=== PATIENT | female | born 1990 | race Two or more races ===

== ENCOUNTER 2019-01-04 11:21 | Emergency (ER) | payer SELFPAY ==
[~2019-01-04] VITALS: Ht 152.4 cm; Wt 79.5 kg
[2019-01-04 11:35] VITALS: BP 124/65
[2019-01-04] MEDS ORDERED: VITAD1000 PO (11:49)
[2019-01-04] MEDS ORDERED: TRAZ-252 PO (11:49)
[2019-01-04] MEDS ORDERED: TOPI100T37 PO (11:49)
[2019-01-04] MEDS ORDERED: DIPH25 PO (11:49)
[2019-01-04] MEDS ORDERED: FLUP10 PO ×2 (11:49)
[2019-01-04] MEDS ORDERED: FLUPH2.5I IM (11:49)
[2019-01-04] MEDS ORDERED: LORA1TAB3 PO (11:49)
== END 2019-01-04 12:56 | disposition home or self-care (01) ==
LOC: EMS 11:22
DX: F20.9 Schizophrenia, unspecified (principal); Z88.8 Allergy status to other drugs, medicaments and biological substances; Z79.899 Other long term (current) drug therapy

== ENCOUNTER 2019-04-29 10:10 | Emergency (ER) | payer SELFPAY ==
[~2019-04-29] VITALS: Ht 154.9 cm; Wt 75.0 kg
[~2019-04-29 10:10] MED LIST: CHOL100018 PO; DIPH25 PO; FLUP10 PO; FLUPH2.5I IM; LORA-1000 PO; TOPI100T37 PO; TRAZ-252 PO
[2019-04-29] MEDS ORDERED: TRIH5TAB2 PO (10:21)
[2019-04-29 12:22] LABS: APPEARANCE,URINE CLOUDY (CLEAR); GLUCOSE, URINE (UA) NEGATIVE (NEGATIVE); KETONES,URINE >=80 mg/dL (NEGATIVE); LEUKOCYTE ESTERASE ,URINE SMALL (NEGATIVE); NITRATE,URINE NEGATIVE (NEGATIVE); PH,URINE 5.5 (5.0-8.0); PROTEIN,URINE SEE CONFIRM (NEGATIVE)
[2019-04-29 12:28] LABS: BILIRUBIN,URINE PRELIM. POSITIVE (NEGATIVE); OCCULT BLOOD,URINE MODERATE (NEGATIVE)
[2019-04-29 12:29] LABS: AMORPHOUS SEDIMENT,UR Many /LPF (None Seen); BACTERIA,URINE Many /HPF (None Seen); SQUAMOUS EPITHELIAL CELL,UR Moderate /LPF (None Seen); SULFOSALICYLIC ACID,URINE 1+ (Negative)
[2019-04-29] MEDS ORDERED: AZITHROMYCIN 250 MG TABLET PO ONE (12:45)
[2019-04-29] MEDS ORDERED: CefTRIAXone SODIUM 1 GM/VIAL IM ONE (12:45)
[2019-04-29] MEDS ORDERED: CEPHALEXIN MONOHYDRATE 500 MG CAPSULE PO ONE (12:45)
[2019-04-29 15:12] VITALS: BP 128/71
== END 2019-04-29 15:19 | disposition home or self-care (01) ==
LOC: EMS 10:11
DX: N89.8 Other specified noninflammatory disorders of vagina (principal); F20.9 Schizophrenia, unspecified; Z79.899 Other long term (current) drug therapy; Z88.8 Allergy status to other drugs, medicaments and biological substances
CPT/HCPCS: 81001; 81025; 84703; 87086; 96372; 99283; J0696

== ENCOUNTER 2022-03-16 17:39 | Emergency (ER) | payer MEDICARE, OTHER ==
[~2022-03-16] VITALS: Ht 154.9 cm; Wt 79.3 kg
[~2022-03-16 17:39] MED LIST changes: -FLUP10 PO; +FLUP10TA28 PO; -TOPI100T37 PO; -TRAZ-252 PO; +TRIH5TAB4 PO
[2022-03-16 22:37] VITALS: BP 141/90
== END 2022-03-16 22:42 | disposition home or self-care (01) ==
LOC: EMS 17:44
DX: S05.12XA Contusion of eyeball and orbital tissues, left eye, initial encounter (principal); E11.9 Type 2 diabetes mellitus without complications; F20.9 Schizophrenia, unspecified; Y04.0XXA Assault by unarmed brawl or fight, initial encounter; Y93.89 Activity, other specified; Y92.89 Other specified places as the place of occurrence of the external cause; Y99.8 Other external cause status; Z88.6 Allergy status to analgesic agent
CPT/HCPCS: 70486; 82962; 99284

== ENCOUNTER 2023-09-23 18:52 | Inpatient (IN) | payer MEDICARE, MEDICAID ==
[~2023-09-23] VITALS: Ht 154.9 cm; Wt 80.8 kg
[~2023-09-23 18:52] MED LIST changes: +DIPH-1243 PO; -DIPH25 PO
[2023-09-24 01:24] LABS: COVID AG,FIA SOURCE NASAL SWAB
[2023-09-24 01:43] LABS: SARS-COV2 (COVID) ANTIGEN,FIA Negative (Negative)
[2023-09-24 10:20] VITALS: BP 141/89; PULSE 110; RESP 18; TEMP 97.9
[2023-09-24 11:35] VITALS: BP 100/60; PULSE 98; RESP 12; TEMP 97.7; O2SAT 97
[2023-09-24] MEDS ORDERED: FLUPH2.5I IM (12:35)
[2023-09-24] MEDS ORDERED: TOPI100T37 PO (12:35)
[2023-09-24] MEDS ORDERED: PROP20TA18 PO (12:35)
[2023-09-24] MEDS ORDERED: ILOP4TAB2 PO (12:35)
[2023-09-24] MEDS ORDERED: DAPA10TA PO (12:35)
[2023-09-24] MEDS ORDERED: DULA4.5P SQ (12:35)
[2023-09-24] MEDS ORDERED: TRAZ-252 PO (12:35)
[2023-09-24] MEDS ORDERED: ALBUTEROL SULFATE HFA 90 MCG/PUFF 8 GM INHALER IH PRN (13:15)
[2023-09-24] MEDS ORDERED: ONDANSETRON HCL 4 MG TABLET PO PRN (13:15)
[2023-09-24] MEDS ORDERED: DOCUSATE SODIUM 100 MG CAPSULE PO PRN (13:15)
[2023-09-24] MEDS ORDERED: GuaiFENesin/D-METHORPHAN [SUGAR-FREE] 200-20MG/10 ML SYRUP UDCUP PO PRN (13:15)
[2023-09-24] MEDS ORDERED: PETROLATUM,WHITE 28 GM JELLY TP PRN (13:15)
[2023-09-24] MEDS ORDERED: LOPERAMIDE HCL 2 MG CAPSULE PO PRN (13:15)
[2023-09-24] MEDS ORDERED: MAGNESIUM HYDROXIDE SUSPENSION 30 ML UDCUP PO PRN (13:15)
[2023-09-24] MEDS ORDERED: IBUPROFEN 400 MG TABLET PO PRN (13:15)
[2023-09-24] MEDS ORDERED: MAG HYDROX/ALUMINUM HYD/SIMETH ES 30 ML SUSPENSION UDCUP PO PRN (13:15)
[2023-09-24] MEDS ORDERED: NICOTINE 14 MG/24 HOUR PATCH TD PRN (13:15)
[2023-09-24] MEDS ORDERED: ACETAMINOPHEN 325 MG TABLET PO PRN (13:15)
[2023-09-24] MEDS ORDERED: GLUCAGON,HUMAN RECOMBINANT 1 MG VIAL IM PRN (15:30)
[2023-09-24 16:26] LABS: GLUCOMETER DEV NAME(LOC) BV3S.; GLUCOSE,POINT OF CARE 114 MG/DL (70-110)
[2023-09-24] MEDS: PROPRANOLOL HCL 20 MG TABLET PO SCH (17:00)
[2023-09-24 20:52] VITALS: BP 114/78; PULSE 84; RESP 20; TEMP 97.2; O2SAT 97
[2023-09-24] MEDS: TOPIRAMATE 100 MG TABLET PO SCH (20:55)
[2023-09-24] MEDS: ILOPERIDONE 4 MG TABLET PO SCH (20:55)
[2023-09-24] MEDS: TraZODone HCL 50 MG TABLET PO SCH (20:55)
[2023-09-24] MEDS: INSULIN LISPRO 100 UNITS/ML SQ PRN (23:08)
[2023-09-24 23:25] LABS: GLUCOMETER DEV NAME(LOC) BV3S.; GLUCOSE,POINT OF CARE 157 MG/DL (70-110)
[2023-09-25] MEDS: ZOLPIDEM TARTRATE 10 MG TABLET PO PRN (02:49)
[2023-09-25] MEDS: LORazepam 2 MG TABLET PO PRN (02:49)
[2023-09-25 07:00] LABS: GLUCOMETER DEV NAME(LOC) BV3S.; GLUCOSE,POINT OF CARE 130 MG/DL (70-110)
[2023-09-25] MEDS: DAPAGLIFLOZIN PROPANEDIOL 5 MG TABLET PO SCH (08:13)
[2023-09-25] MEDS: CHOLECALCIFEROL (VIT D3) 1,000 UNITS [25 MCG] TABLET PO SCH (08:15)
[2023-09-25 08:33] LABS: BASOPHILS % (AUTO) 0.3 % (0.0-2.0); EOSINOPHILS % (AUTO) 4.1 % (1.0-6.0); HEMATOCRIT 39.6 % (36-46); HEMOGLOBIN 12.8 g/dL (12.0-16.0); LYMPHOCYTES # (AUTO) 2.5 K/uL (1.0-4.8); LYMPHOCYTES % (AUTO) 29.8 % (22.0-44.0); MEAN CORPUSCULAR HGB CONC 32.2 G/dL (31.0-37.0); MEAN CORPUSCULAR VOLUME 90 fL (80-100); MONOCYTES # (AUTO) 0.6 K/uL (0.1-1.0); MONOCYTES % (AUTO) 7.8 % (2.0-9.0); NEUTROPHILS # (AUTO) 4.8 K/uL (1.8-7.7); PLATELET COUNT (AUTO) 286 K/uL (150-450); RED CELL DISTRIBUTION WIDTH 15.7 % (11.5-14.5); WHITE BLOOD COUNT (AUTO) 8.2 K/uL (4.5-11.0)
[2023-09-25 08:40] VITALS: BP 114/72; PULSE 69; RESP 16; TEMP 97.8; O2SAT 98
[2023-09-25 08:46] LABS: ANION GAP 9 mmol/L (8-16); CALCIUM, TOTAL 8.8 mg/dL (8.8-10.5); CARBON DIOXIDE 24 mmol/L (22-29); CHLORIDE 108 mmol/L (98-107); GLOMERULAR FILTR. RATE CALC > 60 mL/min (>60); GLUCOSE,RANDOM 131 mg/dL (70-110); POTASSIUM 3.6 mmol/L (3.5-5.1); SODIUM SERUM 141 mmol/L (136-145); UREA NITROGEN, BLOOD 11 mg/dL (7-18)
[2023-09-25 08:52] LABS: ALANINE AMINOTRANSFERASE 17 U/L (12-78); ALKALINE PHOSPHATASE 164 U/L (46-116); ASPARTATE AMINOTRANSFERASE 15 U/L (15-37); BILIRUBIN,TOTAL 0.2 mg/dL (0.1-1.0); TOTAL PROTEIN, SERUM 6.8 g/dL (6.4-8.2)
[2023-09-25 09:03] LABS: ALCOHOL, BLOOD (SERUM) < 3 mg/dL (0-10)
[2023-09-25 09:07] LABS: HEMOGLOBIN A1C 6.9 % (3.8-5.6)
[2023-09-25 09:11] LABS: CHOL/HDL RATIO 3.8 (3.9-5.7); FREE T4 (FREE THYROXINE) 0.93 ng/dL (0.76-1.46); THYROID STIMULATING HORMONE 2.65 uIU/mL (0.36-3.74)
[2023-09-25 12:20] LABS: GLUCOMETER DEV NAME(LOC) BV3S.; GLUCOSE,POINT OF CARE 119 MG/DL (70-110)
[2023-09-25] MEDS: HALOPERIDOL 5 MG TABLET PO PRN (14:57)
[2023-09-25 16:45] LABS: GLUCOMETER DEV NAME(LOC) BV3S.; GLUCOSE,POINT OF CARE 125 MG/DL (70-110)
[2023-09-25 20:30] VITALS: BP 106/69; PULSE 94; RESP 18; TEMP 97.4
[2023-09-25 21:10] LABS: GLUCOMETER DEV NAME(LOC) BV3S.; GLUCOSE,POINT OF CARE 173 MG/DL (70-110)
[2023-09-26] MEDS: LORazepam 1 MG TABLET PO PRN (01:29)
[2023-09-26 06:55] LABS: GLUCOMETER DEV NAME(LOC) BV3S.; GLUCOSE,POINT OF CARE 176 MG/DL (70-110)
[2023-09-26 08:14] VITALS: BP 126/76; PULSE 100; RESP 17; TEMP 97.2; O2SAT 99
[2023-09-26 08:28] LABS: HCG,QUAL URINE NEGATIVE (NEGATIVE)
[2023-09-26 08:30] LABS: APPEARANCE,URINE HAZY (CLEAR); BILIRUBIN,URINE NEGATIVE (NEGATIVE); COLOR,URINE LIGHT YELLOW (YELLOW); GLUCOSE, URINE (UA) >=1000 mg/dL (NEGATIVE); KETONES,URINE NEGATIVE (NEGATIVE); LEUKOCYTE ESTERASE ,URINE LARGE (NEGATIVE); NITRATE,URINE NEGATIVE (NEGATIVE); OCCULT BLOOD,URINE NEGATIVE (NEGATIVE); PROTEIN,URINE NEGATIVE (NEGATIVE); SPECIFIC GRAVITIY, URINE 1.038 (1.003-1.030); UROBILINOGEN,URINE <=1.0 mg/dL (<=1.0)
[2023-09-26 08:36] LABS: AMPHET/METH SCREEN,URINE NEGATIVE (NEGATIVE); BARBITURATE SCREEN, URINE NEGATIVE (NEGATIVE); BENZODIAZEPINES SCREEN,URINE NEGATIVE (NEGATIVE); CANNABINOID SCREEN,URINE NEGATIVE (NEGATIVE); COCAINE SCREEN,URINE NEGATIVE (NEGATIVE); METHADONE SCREEN, URINE NEGATIVE (NEGATIVE); OPIATE SCREEN,URINE NEGATIVE (NEGATIVE); PHENCYCLIDINE SCREEN,URINE NEGATIVE (NEGATIVE)
[2023-09-26 08:39] LABS: ALCOHOL, URINE DRUG SCREEN NEGATIVE (NEGATIVE)
[2023-09-26 08:59] LABS: RBC,URINE None Seen /HPF (0-2)
[2023-09-26 09:00] LABS: BACTERIA,URINE Few /HPF (None Seen); SQUAMOUS EPITHELIAL CELL,UR Few /LPF (None Seen)
[2023-09-26 11:21] LABS: GLUCOMETER DEV NAME(LOC) BV3S.; GLUCOSE,POINT OF CARE 169 MG/DL (70-110)
[2023-09-26] MEDS: CEPHALEXIN MONOHYDRATE 250 MG CAPSULE PO SCH (12:53)
[2023-09-26 16:21] LABS: GLUCOMETER DEV NAME(LOC) BV3S.; GLUCOSE,POINT OF CARE 141 MG/DL (70-110)
[2023-09-26 20:15] VITALS: BP 125/65; PULSE 111; RESP 20; TEMP 97.9; O2SAT 96
[2023-09-26 20:25] LABS: GLUCOMETER DEV NAME(LOC) BV3S.; GLUCOSE,POINT OF CARE 171 MG/DL (70-110)
[2023-09-27 06:50] LABS: GLUCOMETER DEV NAME(LOC) BV3S.; GLUCOSE,POINT OF CARE 210 MG/DL (70-110)
[2023-09-27 08:25] VITALS: BP 122/84; PULSE 100; RESP 17; TEMP 98; O2SAT 98
[2023-09-27 11:50] LABS: GLUCOMETER DEV NAME(LOC) BV3S.; GLUCOSE,POINT OF CARE 191 MG/DL (70-110)
[2023-09-27 17:00] LABS: GLUCOMETER DEV NAME(LOC) BV3S.; GLUCOSE,POINT OF CARE 148 MG/DL (70-110)
[2023-09-27 20:43] VITALS: BP 141/71; PULSE 79; RESP 20; TEMP 97.1; O2SAT 99
[2023-09-27 22:36] LABS: GLUCOMETER DEV NAME(LOC) BV3S.; GLUCOSE,POINT OF CARE 197 MG/DL (70-110)
[2023-09-28 08:18] VITALS: BP 109/72; PULSE 78; RESP 16; TEMP 97.6; O2SAT 97
[2023-09-28 11:45] LABS: GLUCOMETER DEV NAME(LOC) BV3S.; GLUCOSE,POINT OF CARE 219 MG/DL (70-110)
[2023-09-28 16:31] LABS: GLUCOMETER DEV NAME(LOC) BV3S.; GLUCOSE,POINT OF CARE 163 MG/DL (70-110)
[2023-09-28 20:45] LABS: GLUCOMETER DEV NAME(LOC) BV3S.; GLUCOSE,POINT OF CARE 165 MG/DL (70-110)
[2023-09-28 22:27] VITALS: BP 103/54; PULSE 81; RESP 16; TEMP 97; O2SAT 99
[2023-09-29 08:14] VITALS: BP 111/62; PULSE 85; RESP 16; TEMP 97.9; O2SAT 99
[2023-09-29 12:01] LABS: GLUCOMETER DEV NAME(LOC) BV3S.; GLUCOSE,POINT OF CARE 137 MG/DL (70-110)
[2023-09-29 20:11] LABS: GLUCOMETER DEV NAME(LOC) BV3S.; GLUCOSE,POINT OF CARE 183 MG/DL (70-110)
[2023-09-29 20:51] VITALS: BP 124/80; PULSE 90; RESP 20; TEMP 97.4; O2SAT 100
[2023-09-30 06:45] LABS: GLUCOMETER DEV NAME(LOC) BV3S.; GLUCOSE,POINT OF CARE 127 MG/DL (70-110)
[2023-09-30 11:30] VITALS: BP 126/81; PULSE 95; RESP 18; TEMP 96.8; O2SAT 97
[2023-09-30 11:56] LABS: GLUCOMETER DEV NAME(LOC) BV3S.; GLUCOSE,POINT OF CARE 153 MG/DL (70-110)
[2023-09-30 17:15] LABS: GLUCOMETER DEV NAME(LOC) BV3S.; GLUCOSE,POINT OF CARE 165 MG/DL (70-110)
[2023-10-01 08:24] VITALS: BP 118/74; PULSE 73; RESP 16; TEMP 97.6; O2SAT 96
[2023-10-01 20:30] VITALS: BP 131/61; PULSE 92; RESP 18; TEMP 98; O2SAT 99
[2023-10-02 08:23] VITALS: BP 112/73; PULSE 68; RESP 16; TEMP 97.9; O2SAT 98
[2023-10-02 16:20] VITALS: BP 134/57; PULSE 117; RESP 20; TEMP 97.8; O2SAT 98
[2023-10-02 16:30] LABS: GLUCOMETER DEV NAME(LOC) BV3S.; GLUCOSE,POINT OF CARE 228 MG/DL (70-110)
[2023-10-02 20:07] VITALS: BP 100/66; PULSE 117; RESP 20; TEMP 97.8; O2SAT 98
[2023-10-02 23:16] LABS: GLUCOMETER DEV NAME(LOC) BV3S.; GLUCOSE,POINT OF CARE 202 MG/DL (70-110)
[2023-10-03 08:25] VITALS: BP 128/70; PULSE 98; RESP 16; TEMP 97.9; O2SAT 98
[2023-10-03 11:36] LABS: GLUCOMETER DEV NAME(LOC) BV3S.; GLUCOSE,POINT OF CARE 176 MG/DL (70-110)
[2023-10-03 16:01] LABS: GLUCOMETER DEV NAME(LOC) BV3S.; GLUCOSE,POINT OF CARE 216 MG/DL (70-110)
[2023-10-03 20:36] LABS: GLUCOMETER DEV NAME(LOC) BV3S.; GLUCOSE,POINT OF CARE 230 MG/DL (70-110)
[2023-10-03 20:53] VITALS: BP 123/79; PULSE 94; RESP 18; TEMP 97.1; O2SAT 98
[2023-10-04 05:50] LABS: GLUCOMETER DEV NAME(LOC) BV3S.; GLUCOSE,POINT OF CARE 170 MG/DL (70-110)
[2023-10-04 08:23] VITALS: BP 121/74; PULSE 79; RESP 18; TEMP 97.6; O2SAT 99
[2023-10-04 16:26] LABS: GLUCOMETER DEV NAME(LOC) BV3S.; GLUCOSE,POINT OF CARE 263 MG/DL (70-110)
[2023-10-04 20:55] LABS: GLUCOMETER DEV NAME(LOC) BV3S.; GLUCOSE,POINT OF CARE 222 MG/DL (70-110)
[2023-10-04 21:01] VITALS: BP 132/91; PULSE 101; RESP 19; TEMP 97.7; O2SAT 98
[2023-10-05 07:16] LABS: GLUCOMETER DEV NAME(LOC) BV3S.; GLUCOSE,POINT OF CARE 222 MG/DL (70-110)
[2023-10-05 08:10] VITALS: BP 119/68; PULSE 86; RESP 16; TEMP 98; O2SAT 97
[2023-10-05 11:46] LABS: GLUCOMETER DEV NAME(LOC) BV3S.; GLUCOSE,POINT OF CARE 189 MG/DL (70-110)
[2023-10-05 17:00] LABS: GLUCOMETER DEV NAME(LOC) BV3S.; GLUCOSE,POINT OF CARE 170 MG/DL (70-110)
[2023-10-05 20:30] LABS: GLUCOMETER DEV NAME(LOC) BV3S.; GLUCOSE,POINT OF CARE 187 MG/DL (70-110)
[2023-10-05 20:55] VITALS: RESP 18; O2SAT 85
[2023-10-06 05:50] LABS: GLUCOMETER DEV NAME(LOC) BV3S.; GLUCOSE,POINT OF CARE 170 MG/DL (70-110)
[2023-10-06 08:11] VITALS: BP 112/94; PULSE 99; RESP 16; TEMP 97.9; O2SAT 99
[2023-10-06 08:29] LABS: APPEARANCE,URINE HAZY (CLEAR); BILIRUBIN,URINE NEGATIVE (NEGATIVE); COLOR,URINE LIGHT YELLOW (YELLOW); GLUCOSE, URINE (UA) >=1000 mg/dL (NEGATIVE); KETONES,URINE NEGATIVE (NEGATIVE); LEUKOCYTE ESTERASE ,URINE LARGE (NEGATIVE); NITRATE,URINE NEGATIVE (NEGATIVE); OCCULT BLOOD,URINE TRACE (NEGATIVE); PH,URINE 5.5 (5.0-8.0); PROTEIN,URINE NEGATIVE (NEGATIVE); SPECIFIC GRAVITIY, URINE 1.035 (1.003-1.030); UROBILINOGEN,URINE <=1.0 mg/dL (<=1.0)
[2023-10-06 09:22] LABS: BACTERIA,URINE Few /HPF (None Seen); RBC,URINE 0-2 /HPF (0-2); SQUAMOUS EPITHELIAL CELL,UR Few /LPF (None Seen)
[2023-10-06] MEDS: FluPHENAZine DECANOATE 25 MG/ML IM SCH (09:43)
[2023-10-06 12:05] LABS: GLUCOMETER DEV NAME(LOC) BV3S.; GLUCOSE,POINT OF CARE 172 MG/DL (70-110)
[2023-10-06] MEDS: LORazepam 2 MG TABLET PO PRN (13:58)
[2023-10-06 16:26] LABS: GLUCOMETER DEV NAME(LOC) BV3S.; GLUCOSE,POINT OF CARE 176 MG/DL (70-110)
[2023-10-06 20:28] VITALS: BP 148/81; PULSE 79; RESP 16; TEMP 98.1; O2SAT 97
[2023-10-06 21:21] LABS: GLUCOMETER DEV NAME(LOC) BV3S.; GLUCOSE,POINT OF CARE 173 MG/DL (70-110)
[2023-10-07 10:01] VITALS: BP 118/79; PULSE 106; RESP 16; TEMP 98; O2SAT 99
[2023-10-07 12:21] LABS: GLUCOMETER DEV NAME(LOC) BV3S.; GLUCOSE,POINT OF CARE 321 MG/DL (70-110)
[2023-10-07 17:00] LABS: GLUCOMETER DEV NAME(LOC) BV3S.; GLUCOSE,POINT OF CARE 159 MG/DL (70-110)
[2023-10-07 21:12] VITALS: BP 107/77; PULSE 91; RESP 16; TEMP 97.5; O2SAT 98
[2023-10-07 21:16] LABS: GLUCOMETER DEV NAME(LOC) BV3S.; GLUCOSE,POINT OF CARE 256 MG/DL (70-110)
[2023-10-08 08:29] VITALS: BP 118/74; PULSE 100; RESP 18; TEMP 97.9; O2SAT 96
[2023-10-08 11:46] LABS: GLUCOMETER DEV NAME(LOC) BV3S.; GLUCOSE,POINT OF CARE 148 MG/DL (70-110)
[2023-10-08] MEDS ORDERED: AMPICILLIN TRIHYDRATE 500 MG CAPSULE PO SCH (17:00)
[2023-10-08 20:02] VITALS: BP 139/62; PULSE 95; RESP 20; TEMP 97.7; O2SAT 98
[2023-10-08] MEDS: AMPICILLIN TRIHYDRATE 500 MG CAPSULE PO SCH (21:43)
[2023-10-09 08:10] VITALS: BP 115/67; PULSE 82; RESP 16; TEMP 98; O2SAT 96
[2023-10-09 20:19] VITALS: BP 123/77; PULSE 90; RESP 20; TEMP 97.8; O2SAT 98
[2023-10-09 20:25] LABS: GLUCOMETER DEV NAME(LOC) BV3S.; GLUCOSE,POINT OF CARE 158 MG/DL (70-110)
[2023-10-10 08:02] VITALS: BP 136/63; PULSE 65; RESP 17; TEMP 97.6; O2SAT 98
[2023-10-10 11:56] LABS: GLUCOMETER DEV NAME(LOC) BV3S.; GLUCOSE,POINT OF CARE 135 MG/DL (70-110)
[2023-10-10 16:25] LABS: GLUCOMETER DEV NAME(LOC) BV3S.; GLUCOSE,POINT OF CARE 149 MG/DL (70-110)
[2023-10-10 21:16] LABS: GLUCOMETER DEV NAME(LOC) BV3S.; GLUCOSE,POINT OF CARE 251 MG/DL (70-110)
[2023-10-10 23:27] VITALS: BP 135/81; PULSE 90; RESP 18; TEMP 97.5; O2SAT 98
[2023-10-11 06:51] LABS: GLUCOMETER DEV NAME(LOC) BV3S.; GLUCOSE,POINT OF CARE 178 MG/DL (70-110)
[2023-10-11 08:13] VITALS: RESP 16
[2023-10-11 11:30] LABS: GLUCOMETER DEV NAME(LOC) BV3S.; GLUCOSE,POINT OF CARE 202 MG/DL (70-110)
[2023-10-11 16:26] LABS: GLUCOMETER DEV NAME(LOC) BV3S.; GLUCOSE,POINT OF CARE 188 MG/DL (70-110)
[2023-10-11 20:25] LABS: GLUCOMETER DEV NAME(LOC) BV3S.; GLUCOSE,POINT OF CARE 225 MG/DL (70-110)
[2023-10-11 22:13] VITALS: BP 119/55; PULSE 80; RESP 17; TEMP 98.1; O2SAT 98
[2023-10-11 23:09] VITALS: BP 119/60; PULSE 80; RESP 17; TEMP 98.1; O2SAT 98
[2023-10-12 06:21] LABS: GLUCOMETER DEV NAME(LOC) BV3S.; GLUCOSE,POINT OF CARE 189 MG/DL (70-110)
[2023-10-12 08:19] VITALS: BP 128/61; PULSE 100; RESP 18; TEMP 98; O2SAT 99
[2023-10-12 11:16] LABS: GLUCOMETER DEV NAME(LOC) BV3S.; GLUCOSE,POINT OF CARE 181 MG/DL (70-110)
[2023-10-12 16:55] LABS: GLUCOMETER DEV NAME(LOC) BV3S.; GLUCOSE,POINT OF CARE 185 MG/DL (70-110)
[2023-10-12 20:03] VITALS: BP 142/61; PULSE 107; RESP 20; TEMP 97.8; O2SAT 99
[2023-10-12 20:41] LABS: GLUCOMETER DEV NAME(LOC) BV3S.; GLUCOSE,POINT OF CARE 239 MG/DL (70-110)
[2023-10-13 08:18] VITALS: RESP 16
[2023-10-13 12:01] LABS: GLUCOMETER DEV NAME(LOC) BV3S.; GLUCOSE,POINT OF CARE 177 MG/DL (70-110)
[2023-10-13 20:02] VITALS: BP 125/78; PULSE 103; RESP 20; TEMP 98.7; O2SAT 100
[2023-10-13 21:55] LABS: GLUCOMETER DEV NAME(LOC) BV3S.; GLUCOSE,POINT OF CARE 191 MG/DL (70-110)
[2023-10-13 22:26] VITALS: BP 112/61; PULSE 76
[2023-10-14 06:35] LABS: GLUCOMETER DEV NAME(LOC) BV3S.; GLUCOSE,POINT OF CARE 198 MG/DL (70-110)
[2023-10-14 08:57] VITALS: BP 136/86; PULSE 100; RESP 18; TEMP 97.4; O2SAT 100
[2023-10-14 11:41] LABS: GLUCOMETER DEV NAME(LOC) BV3S.; GLUCOSE,POINT OF CARE 171 MG/DL (70-110)
[2023-10-14 16:36] LABS: GLUCOMETER DEV NAME(LOC) BV3S.; GLUCOSE,POINT OF CARE 186 MG/DL (70-110)
[2023-10-14 20:56] VITALS: BP 115/50; PULSE 79; RESP 16; TEMP 97; O2SAT 96
[2023-10-14 22:21] LABS: GLUCOMETER DEV NAME(LOC) BV3S.; GLUCOSE,POINT OF CARE 254 MG/DL (70-110)
[2023-10-15 06:06] LABS: GLUCOMETER DEV NAME(LOC) BV3S.; GLUCOSE,POINT OF CARE 198 MG/DL (70-110)
[2023-10-15 10:33] VITALS: BP 110/74; PULSE 107; RESP 18; TEMP 97.7; O2SAT 99
[2023-10-15 11:55] LABS: GLUCOMETER DEV NAME(LOC) BV3S.; GLUCOSE,POINT OF CARE 252 MG/DL (70-110)
[2023-10-15 16:56] LABS: GLUCOMETER DEV NAME(LOC) BV3S.; GLUCOSE,POINT OF CARE 164 MG/DL (70-110)
[2023-10-15 20:50] LABS: GLUCOMETER DEV NAME(LOC) BV3S.; GLUCOSE,POINT OF CARE 202 MG/DL (70-110)
== END 2023-10-15 20:53 | disposition short-term general hospital (02) | DRG 885 ==
LOC: EMS 18:54 → B3A 09-24 05:50
PROVIDERS: ADMIT Psychiatry & Neurology Psychiatry; ATTEND Psychiatry & Neurology Psychiatry
PROC: GZHZZZZ Group Psychotherapy (ICD-10-PCS; principal; 2023-09-24)
DX: F25.0 Schizoaffective disorder, bipolar type (principal); N39.0 Urinary tract infection, site not specified; G40.909 Epilepsy, unspecified, not intractable, without status epilepticus; G47.00 Insomnia, unspecified; F41.9 Anxiety disorder, unspecified; Z20.822 Contact with and (suspected) exposure to COVID-19; E11.9 Type 2 diabetes mellitus without complications; I10 Essential (primary) hypertension; E78.5 Hyperlipidemia, unspecified; Z79.899 Other long term (current) drug therapy; Z79.84 Long term (current) use of oral hypoglycemic drugs; Z88.8 Allergy status to other drugs, medicaments and biological substances
CPT/HCPCS: 80053; 80061; 80307; 81001; 82962; 83036; 84439; 84443; 84703; 85025; 87081; 87086; 87186; 99285; G0480; J2680; Q9967

== ENCOUNTER 2024-05-25 03:27 | Emergency (ER) | payer MEDICARE, OTHER ==
[~2024-05-25] VITALS: Ht 154.9 cm; Wt 77.3 kg
[~2024-05-25 03:27] MED LIST changes: +CLOZ100T61 PO; +DAPA10TA PO; +DAPA5TAB6 PO; +DULA4.5P SQ; -FLUP10TA28 PO; +ILOP4TAB2 PO; +PROP20TA18 PO; +TOPI100T37 PO; +TRAZ-252 PO; +VALP250S23 PO
[2024-05-25 03:52] VITALS: TEMP 98.2
[2024-05-25 05:00] VITALS: BP 105/60; PULSE 91; RESP 16; O2SAT 100
== END 2024-05-25 05:18 | disposition admitted as inpatient to this hospital (09) ==
LOC: EMS 03:28
DX: Z04.6 Encounter for general psychiatric examination, requested by authority (principal); E11.9 Type 2 diabetes mellitus without complications; I10 Essential (primary) hypertension; F20.9 Schizophrenia, unspecified; F32.A Depression, unspecified; Z88.8 Allergy status to other drugs, medicaments and biological substances; Z79.84 Long term (current) use of oral hypoglycemic drugs; Z79.85 Long-term (current) use of injectable non-insulin antidiabetic drugs
CPT/HCPCS: 99284; Z7502